=== PATIENT | female | born 1955 | race Caucasian/White ===

== ENCOUNTER 2018-02-27 16:48 | Emergency (ER) | payer OTHER, MEDICAID ==
[~2018-02-27] VITALS: Ht 170.1 cm; Wt 56.2 kg
[2018-02-27] MEDS ORDERED: MYCOLOG CREAM 115 GM T (17:11)
== END 2018-02-27 17:40 | disposition home or self-care (01) ==
LOC: ED 16:48
DX: L30.8 Other specified dermatitis (principal); Z91.041 Radiographic dye allergy status; Z88.2 Allergy status to sulfonamides; Z91.040 Latex allergy status; Z88.1 Allergy status to other antibiotic agents; Z88.8 Allergy status to other drugs, medicaments and biological substances